=== PATIENT | female | born 1985 | race African-American/Black ===

== ENCOUNTER 2020-04-30 02:47 | Emergency (ER) | payer OTHER, SELFPAY ==
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
[2020-04-30 03:01] VITALS: BP 145/101; BP 151/100; PULSE 122; RESP 20; TEMP 36.6; O2SAT 100; O2SAT 99; BMI 24.9
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
--- NOTE | 2020-04-30 03:11 | PC.NURSE ---
pt wants ama form, darleen friedman spoke to patient. pt is refusing to sign ama after she wanted the ama form and refusing a ct scan.
== END 2020-04-30 03:20 | disposition left against medical advice (07) ==
LOC: HO.ED 03:20
PROVIDERS: Emergency Provider Emergency Medicine
DX: G44.309 Post-traumatic headache, unspecified, not intractable (principal); S00.93XA Contusion of unspecified part of head, initial encounter; Y04.8XXA Assault by other bodily force, initial encounter; Y93.9 Activity, unspecified; Y92.009 Unspecified place in unspecified non-institutional (private) residence as the place of occurrence of the external cause; Y99.9 Unspecified external cause status
CPT/HCPCS: 99281; 99283

== ENCOUNTER 2020-04-30 03:49 | Emergency (ER) | payer OTHER, SELFPAY ==
[2020-04-30 03:57] VITALS: BP 145/99; PULSE 112; RESP 30; TEMP 35.9; O2SAT 99; BMI 23.8
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
== END 2020-04-30 05:05 | disposition left against medical advice (07) ==
PROVIDERS: Emergency Provider Emergency Medicine
DX: S00.81XA Abrasion of other part of head, initial encounter (principal); G44.309 Post-traumatic headache, unspecified, not intractable; Y04.8XXA Assault by other bodily force, initial encounter; Y93.9 Activity, unspecified; Y92.9 Unspecified place or not applicable; Y99.9 Unspecified external cause status
CPT/HCPCS: 99281; 99283